=== PATIENT | female | born 1995 | race Caucasian/White ===

== ENCOUNTER → 2017-03-26 | Emergency (ER) | payer BC ==
[~2017-03-26] MED LIST: CALC250T PO; IBUP-232 PO; PREN1CAP20 PO; SENN1TAB PO
--- NOTE | 2017-03-26 13:37 | PD ---
HPI Chief Complaint Equivocal NST from office Date Seen: March 26, 2017 Time Seen: 13:24 (Jaiden Dixon MD R1) Travel History International Travel<30 Days: No Contact w/Intl Traveler<30Days: No (Jaiden Dixon MD R1) History of Present Illness HPI 21 y/o G1 at 40/2 weeks presents from office for equivocal NST. [facility] and NST was performed because patient was past 40 weeks. Was sent over here to ED. Otherwise, denies any complaints/concerns. Denies any vaginal bleeding, loss of fluids, contractions. Endorses movement. Denies any chest pain, SOB, abdominal pain, leg pain. No headache, changes in vision, edema. No problems with this . Para: 0 : 1 (Jaiden Dixon MD R1) History Past Medical History Medical History: Denies Significant Hx (Jaiden Dixon MD R1) Obstetric History Obstetric History (Jaiden Dixon MD) Past Surgical History Surgical History: No Previous Surgery (Jaiden Dixon MD) Family History Family History: Negative (Jaiden Dixon MD) Social History Alcohol Use: No Tobacco Use: No Substance Abuse: No (Jaiden Dixon MD) Allergies-Medications (Allergen,Severity, Reaction): Coded Allergies: No Known Allergies (Unverified , 03/26/17) Home Meds Active Scripts W/O Vit A W/ Fe Carbo (Prenate Mini 18-0.6-0.4-350 mg)1 Cap Cap1 Cap PO DAILY #30 BOTTLE Ref 11 Prov:Heather Mejia CNM [facility] 11/02/16 Without A W/ Fe Carbo (Prenate Mini 29-0.6-0.4-350 mg)1 Cap Cap Sample #2 Prov:Heather Mejia CNM [facility] 11/02/16 Reported Medications Calcium Citrate 250 Mg [id number] Mg PO Ref 0 11/02/16 Review of Systems General / Constitutional: Weight Gain, No: Fever, Weight Loss, Chills Eyes: No: Diploplia, Blurred Vision HENT: No: Headaches, Vertigo Cardiovascular: No: Irregular Rhythm, Chest Pain or Discomfort, Palpitations Respiratory: No: Cough, Short of Breath Gastrointestinal: No: Nausea, Vomiting, Diarrhea, Abdominal Pain Genitourinary: No: Urgency, Frequency, Dysuria, Pelvic Pain, Vaginal Bleeding Musculoskeletal: No: Limited ROM, Weakness, Cramping, Edema Skin: No Rash, No Itching Neurologic: No: Weakness, Dizziness (Jaiden Dixon MD R1) Physical Exam Narrative GENERAL: Well-nourished, well-developed patient. SKIN: Warm and dry. HEAD: Normocephalic and atraumatic. EYES: No scleral icterus. No injection or drainage. ENT: No nasal drainage noted. Mucous membranes pink. Airway patent. NECK: Supple, trachea midline. No JVD. CARDIOVASCULAR: Regular rate and rhythm without murmurs, gallops, or rubs. RESPIRATORY: Breath sounds equal bilaterally. No accessory muscle use. ABDOMEN/GI: Abdomen soft, non-tender, bowel sounds present, no rebound, no guarding Gravid to 40 weeks size GENITOURINARY: External Genitalia: intact and normal in appearance Cervix: posterior Dilatation: 1 Effacement: 50 Station: -2 Presentation: vertex Membranes: intact Uterine Contractions: q5-10minutes FHT's: Category: 1 Baseline: 150 Reactive: yes Variability: moderate Decels: none EXTREMITIES: No cyanosis or edema. BACK: Nontender without obvious deformity. No CVA tenderness. NEUROLOGICAL: Awake and alert. Motor and sensory grossly within normal limits. Five out of 5 muscle strength in all muscle groups. Normal speech. (Jaiden Dixon MD R1) Data Data Vital Signs Reviewed: Yes (Jaiden Dixon MD R1) [facility] Medical Record Reviewed: Yes Interpretation(s) 21 y/o at 40/2 weeks presents from office for equivocal NST Category 1 FHT Vitals stable Cervical exam: /-2 - Discharge home - Schedule induction on 03/29 at 8pm with Cytotec - [facility] appointment with [facility] - Return to ED if signs of labor, loss of fluids, vaginal bleeding, frequent contractions. (Jaiden Dixon MD R1) Diagnosis Diagnosis: Primary Impression: 40 weeks gestation of Disposition: DISCHARGE HOME Condition: Stable Patient Instructions: General Instructions Collaborating MD Comments monitoring is category 1. Patient set up for induction prior to discharge. (Jami Mcgowan MD) Jaiden Dixon MD R1 March 26, 2017 13:37 Jami Mcgowan MD March 26, 2017 23:02
== END | disposition home or self-care (01) ==
LOC: HOBED 12:40
DX: O26.93 Pregnancy related conditions, unspecified, third trimester (principal); Z3A.40 40 weeks gestation of pregnancy
CPT/HCPCS: 59025

== ENCOUNTER 2017-03-31 01:40 | Inpatient (IN) | payer BC ==
[~2017-03-31] VITALS: Ht 172.7 cm; Wt 79.4 kg
[2017-03-31] VITALS (58 sets, daily range): BP systolic 109–138; BP diastolic 50–96; PULSE 74–135; RESP 18–22; TEMP 98.3–101.2
[~2017-03-31 01:40] MED LIST changes: -IBUP-232 PO; -SENN1TAB PO
[2017-03-31] MEDS: LACTATED RINGER'S 1000 ML INJ 1,000 ML IV SCH ×2 (02:05→05:31)
[2017-03-31] MEDS ORDERED: LACTATED RINGER'S 1000 ML INJ 1,000 ML IV PRN (02:05)
--- NOTE | 2017-03-31 02:05 | HHI.HP ---
HPI Chief Complaint induction of labor Date Seen: March 31, 2017 Time Seen: 02:05 (Octavia Lott MD R3) Travel History International Travel<30 Days: No Contact w/Intl Traveler<30Days: No Known Affected Area: No (Octavia Lott MD R3) History of Present Illness HPI Patient is a at 41 weeks gestation with EDC of who presents for induction of labor. She was seen on March 26 and scheduled for induction on March 29 due to post dates; however she wanted to go into labor naturally so she did not come in for induction last night. She started having regular painful contractions every 1-3 minutes so she went to [facility]. She was 2cm so they discharged her home. She continued to have painful contractions so she came to [place] for evaluation. Denies vaginal bleeding, LOF, or dysuria. Endorses good movement. has been uncomplicated thus far. Para: 0 : 1 (Octavia Lott MD R3) History Past Medical History Medical History: Denies Significant Hx (Octavia Lott MD R3) Obstetric History Obstetric History (Octavia Lott MD R3) Past Surgical History Surgical History: No Previous Surgery (Octavia Lott MD R3) Family History Family History: Negative (Octavia Lott MD R3) Social History Alcohol Use: No Tobacco Use: No Substance Abuse: No (Octavia Lott MD R3) Allergies-Medications (Allergen,Severity, Reaction): Coded Allergies: No Known Allergies (Unverified , 03/29/17) Home Meds Active Scripts W/O Vit A W/ Fe Carbo (Prenate Mini 18-0.6-0.4-350 mg)1 Cap Cap1 Cap PO DAILY #30 BOTTLE Ref 11 Prov:Heather Mejia CNM [facility] 11/02/16 Without A W/ Fe Carbo (Prenate Mini 29-0.6-0.4-350 mg)1 Cap Cap Sample #2 Prov:Heather Mejia CNM [facility] 11/02/16 Reported Medications Calcium Citrate 250 Mg [id number] Mg PO Ref 0 11/02/16 Review of Systems Except as stated in HPI: all other systems reviewed are Neg (Octavia Lott MD R3) Physical Exam Narrative GENERAL: Well-nourished, well-developed patient. SKIN: Warm and dry. HEAD: Normocephalic and atraumatic. EYES: No scleral icterus. No injection or drainage. ENT: No nasal drainage noted. Mucous membranes pink. Airway patent. NECK: Supple, trachea midline. CARDIOVASCULAR: Regular rate and rhythm without murmurs, gallops, or rubs. RESPIRATORY: Breath sounds equal bilaterally. No accessory muscle use. ABDOMEN/GI: Abdomen soft, non-tender, bowel sounds present, no rebound, no guarding Gravid to 41 weeks size GENITOURINARY: External Genitalia: intact and normal in appearance Cervix: Midposition Dilatation: 2cm Effacement: 100% Station: -1 Presentation: [-] Membranes: intact Uterine Contractions: every 1-3 minutes FHT's: Category: 1 Baseline: 145 Reactive: yes Variability: moderate Decels: EXTREMITIES: No cyanosis or edema. BACK: Nontender without obvious deformity. No CVA tenderness NEUROLOGICAL: Awake and alert. Motor and sensory grossly within normal limits. Normal speech. (Octavia Lott MD R3) Data Data Vital Signs Reviewed: Yes (Octavia Lott MD R3) Assessment/Plan Assessment and Plan Patient is a at 41 weeks gestation with EDC of who presents for induction of labor; however she is estee regularly every 1-3 minutes so she wants to hold off on starting Pitocin if possible. Cervix 2cm/100%/-1. Intact membranes. 1) IUP: Category I tracing. -Continue routine care 2) GBS negative 3) Dispo: Anticipate normal vaginal delivery. D/w Dr. Angelo (Octavia Lott MD R3) Attending Attestation The exam, history, and the medical decision-making described in the above note were completed with the assistance of the resident provider. I reviewed and agree with the findings presented. I attest that I had a [id number] encounter with the patient on the same day, and personally performed and documented my assessment and findings in the medical record. (Dayanara Angelo MD) Octavia Lott MD R3 March 31, 2017 02:05 Dayanara Angelo MD March 31, 2017 08:26
[2017-03-31] MEDS ORDERED: SODIUM CHLORID 0.9% 500 ML INJ 500 ML IV PRN (02:15)
[2017-03-31] MEDS ORDERED: MISOPROSTOL 25 MCG SUPP VAGINAL ONE (02:15)
[2017-03-31] MEDS ORDERED: ONDANSETRON HCL 4 MG/2 ML VIAL IV PRN (02:15)
[2017-03-31] MEDS ORDERED: CITRIC ACID-SODIUM CITRATE LIQ 30 ML UDC PO SCH (02:15)
[2017-03-31] MEDS ORDERED: OXYTOCIN 30 UNITS-500ML PREMIX 500 ML IV ONE (02:15)
[2017-03-31] MEDS ORDERED: LIDOCAINE HCL 1% 50 ML VIAL INFIL PRN (02:15)
[2017-03-31] MEDS ORDERED: LIDOCAINE HCL 1% 50 ML VIAL I-DERMAL PRN (02:15)
[2017-03-31] MEDS ORDERED: MINERAL OIL 10 ML VIAL TOPICAL PRN (02:15)
[2017-03-31] MEDS ORDERED: SODIUM CHLOR 0.9% 1000 ML INJ 1,000 ML IV PRN (02:25)
[2017-03-31 02:26] LABS: AUTOMATED NEUTROPHIL # 10.2 TH/MM3 (1.8-7.7); BASOPHIL # 0.1 TH/MM3 (0-0.2); BASOPHIL % 0.4 % (0.0-2.0); HEMATOCRIT 33.3 % (35.0-46.0); HEMO FLAGS DIFF FINAL; LYMPH % 16.5 % (9.0-44.0); LYMPHOCYTE # 2.2 TH/MM3 (1.0-4.8); MEAN CELL VOLUME 84.5 FL (80.0-100.0); MEAN CORPUSCULAR HEMOGLOBIN 26.8 PG (27.0-34.0); MEAN CORPUSCULAR HGB CONC 31.7 % (32.0-36.0); MONO % 6.6 % (0.0-8.0); NEUT % 76.5 % (16.0-70.0); PLATELET COUNT 287 TH/MM3 (150-450); RED BLOOD COUNT 3.94 MIL/MM3 (4.00-5.30); RED CELL DISTRIBUTION WIDTH 13.4 % (11.6-17.2); WHITE BLOOD COUNT 13.4 TH/MM3 (4.0-11.0)
[2017-03-31 02:37] LABS: BLOOD, URINE NEG (NEG); COMMENT (UR) CULT NOT INDICATED; CULTURE IF INDICATED CULT NOT INDICATED; GLUCOSE,URINE NEG (NEG); KETONE, URINE NEG (NEG); MUCUS URINE FEW /lpf (OCC); NITRITE,URINE NEG (NEG); RENAL EPITHELIAL CELLS <1 /hpf; SQUAMOUS EPITHELIAL CELL URINE 2 /hpf (0-5); URINE COLOR YELLOW (YELLW/STRAW)
[2017-03-31] MEDS ORDERED: fentaNYL 2MCG-BUPIV 0.125% INJ 100 ML ONE (04:33)
[2017-03-31] MEDS ORDERED: DO NOT ADMINISTER ANTICOAGULANTS PRN (05:00)
[2017-03-31] MEDS ORDERED: fentaNYL 2MCG-BUPIV 0.125% 100 ML EPIDURAL SCH (05:00)
[2017-03-31] MEDS ORDERED: ePHEDrine/NS 25 MG/5 ML SYR IV PRN (05:00)
[2017-03-31] MEDS ORDERED: NO SYSTEM NARCOTICS PRN (05:00)
[2017-03-31] MEDS: AMPICILLIN/SULBAC 3 GM/NS 100 ML IV SCH ×4 (09:24→15:53)
[2017-03-31] MEDS ORDERED: AMPICILLIN-SULBACTAM INJ 3 GM VIAL IM SCH (10:00)
[2017-03-31] MEDS ORDERED: AMPICILLIN/SULBAC 3 GM/NS 100 ML IV SCH ×2 (10:00)
--- NOTE | 2017-03-31 10:06 | PD.OB.DELI ---
Delivery Date: March 31, 2017 Anesthesia: None Episiotomy: None Vaginal Delivery: Normal Presentation: Occiput anterior Nuchal Cord: None : Female One Minute : 9 Five Minute : 9 Placenta: Spontaneous delivery, Intact, 3 vessel cord Repair: Chromic running (Jaiden Dixon MD R1) Delivery Date: March 31, 2017 Anesthesia: Epidural Episiotomy: None Vaginal Delivery: Normal Presentation: Occiput anterior Nuchal Cord: None Delayed cord clamping (45 sec): No Infant: Female One Minute : 9 Five Minute : 9 Weight: [id number] Placenta: Spontaneous delivery, Intact, 3 vessel cord Additional Information bilateral superficial periurthral lacerations repaired with interrupted sutures of 3-0 vicryl. EBL 300 ml. (Dayanara Angelo MD) Jaiden Dixon MD R1 March 31, 2017 10:05 Dayanara Angelo MD March 31, 2017 10:36
[2017-03-31] MEDS ORDERED: ONDANSETRON ODT 4 MG TAB PO PRN (11:00)
[2017-03-31] MEDS ORDERED: oxyCODONE/ACETAMINOPHEN 5 MG/325 MG TAB PO PRN ×2 (11:00)
[2017-03-31] MEDS ORDERED: SODIUM CHLORIDE 0.9% FLUSH 10 ML FLUSH IV FLUSH PRN (11:00)
[2017-03-31] MEDS ORDERED: ZOLPIDEM TARTRATE 5 MG TAB PO PRN (11:00)
[2017-03-31] MEDS ORDERED: WITCH HAZEL 50%/GLYCERIN 12.5% 40 PAD JAR TOPICAL PRN (11:00)
[2017-03-31] MEDS ORDERED: BENZOCAINE 20% TOPICAL SPRAY 60 ML CAN TOPICAL PRN (11:00)
[2017-03-31] MEDS ORDERED: ALUMINUM/MAGNESIUM/SIMETH 30 ML CUP PO PRN (11:00)
[2017-03-31] MEDS ORDERED: ACETAMINOPHEN 325 MG TAB PO PRN (11:00)
[2017-03-31] MEDS: IBUPROFEN 600 MG TAB PO PRN (11:32)
[2017-03-31 13:13] LABS: BASOPHIL % 0.2 % (0.0-2.0); HEMATOCRIT 31.8 % (35.0-46.0); HEMO FLAGS DIFF FINAL; LYMPH % 9.4 % (9.0-44.0); LYMPHOCYTE # 1.6 TH/MM3 (1.0-4.8); MEAN CELL VOLUME 83.5 FL (80.0-100.0); MEAN CORPUSCULAR HEMOGLOBIN 27.1 PG (27.0-34.0); MEAN CORPUSCULAR HGB CONC 32.5 % (32.0-36.0); MONO % 7.6 % (0.0-8.0); NEUT % 82.8 % (16.0-70.0); PLATELET COUNT 298 TH/MM3 (150-450); RED BLOOD COUNT 3.81 MIL/MM3 (4.00-5.30); RED CELL DISTRIBUTION WIDTH 13.2 % (11.6-17.2); WHITE BLOOD COUNT 16.9 TH/MM3 (4.0-11.0)
[2017-03-31] MEDS ORDERED: DIPHTH/TETANUS/ACEL PERTUSSIS (BOOSTER) 0.5 ML VIAL/PFS IM ONE (16:00)
[2017-03-31] MEDS ORDERED: MEASLES, MUMPS, RUBELLA VACCINE 0.5 ML VIAL SQ ONE (16:00)
[2017-03-31] MEDS ORDERED: SODIUM CHLORIDE 0.9% FLUSH 10 ML FLUSH IV FLUSH SCH (21:00)
[2017-04-01] MEDS: AMPICILLIN/SULBAC 3 GM/NS 100 ML IV SCH ×4 (00:33→06:26)
[2017-04-01] MEDS: DOCUSATE SODIUM 50 MG/SENNA 8.6 MG TAB PO PRN ×2 (06:26→22:06)
[2017-04-01] MEDS: IBUPROFEN 600 MG TAB PO PRN ×2 (07:26→22:06)
--- NOTE | 2017-04-01 08:18 | HHI.OB ---
Subjective Post Day: 1 Remarks day #1. AFVSS overnight. Afebrile since 0900 yesterday. Pain well- controlled. Decreased lochia. Denies dysuria. No breast tenderness. She is feeding the baby via breast. Appetite good. No nausea or vomiting. Endorses flatus. No bowel movement. Ambulating well. Denies calf pain, shortness of breath, or cough. Otherwise, she is doing well this morning and has no other complaints. Objective Vitals/I&O Vital Signs Date Time Temp Pulse Resp B/P Pulse Ox O2 Delivery O2 Flow Rate FiO2 03/31/17 11:28 18 03/31/17 11:21 98.5 03/31/17 11:15 99 123/95 03/31/17 11:00 87 116/69 03/31/17 10:58 98.5 03/31/17 10:56 18 03/31/17 10:45 94 118/78 03/31/17 10:45 18 03/31/17 10:30 85 131/65 03/31/17 10:28 18 03/31/17 10:16 94 124/64 03/31/17 10:15 18 03/31/17 10:00 101 117/67 03/31/17 09:53 20 03/31/17 09:53 99.6 03/31/17 09:45 20 03/31/17 09:45 100 130/52 03/31/17 09:30 105 136/73 03/31/17 09:15 102 114/50 03/31/17 09:04 101.2 22 03/31/17 09:00 92 134/59 03/31/17 08:46 98 130/50 03/31/17 08:30 106 132/68 03/31/17 08:22 115/92 Objective Remarks GENERAL: Well-nourished, well-developed patient. CARDIOVASCULAR: Regular rate and rhythm without murmurs, gallops, or rubs. RESPIRATORY: Breath sounds equal bilaterally. No accessory muscle use. ABDOMEN/GI: Abdomen soft, non-tender. Fundus: Firm, non-tender at umbilicus. GENITOURINARY: Light to moderate bleeding. EXTREMITIES: No cyanosis or edema, non-tender, without signs of DVT. Medications and IVs Current Medications Medications (Trade) Dose Ordered Sig/Kelsey Route Start Time Stop Time Status Last Admin Lactated Ringer's 1,000 ml @ 125 mls/hr Q8H IV 03/31/17 02:05 03/31/17 05:31 Lactated Ringer's 1,000 ml @ 3,000 mls/hr Q20M PRN IV 03/31/17 02:05 03/31/17 05:32 (NS 1000 ml Inj) 1,000 ml @ 100 mls/hr Q10H PRN IV 03/31/17 02:25 (Zofran Inj) 4 mg Q6H PRN IV 03/31/17 02:15 (fentaNYL INJ) 50 mcg Q1H PRN IV PUSH 03/31/17 02:15 03/31/17 05:30 (fentaNYL INJ) 100 mcg Q1H PRN IV PUSH 03/31/17 02:15 Mineral Oil 10 ml 10 ml UNSCH PRN TOPICAL 03/31/17 02:15 Fentanyl/ Bupivacaine HCl 100 ml @ 0 mls/hr TITRATE EPIDURAL 03/31/17 05:00 (Unasyn Inj/NS Inj) 100 ml @ 200 mls/hr Q6H IV 03/31/17 09:30 04/01/17 06:26 (NS Flush) 2 ml BID IV FLUSH 03/31/17 21:00 (NS Flush) 2 ml UNSCH PRN IV FLUSH 03/31/17 11:00 (Tylenol) 650 mg Q4H PRN PO 03/31/17 11:00 (Motrin) 600 mg Q6H PRN PO 03/31/17 11:00 04/01/17 07:26 (Percocet 5-325 Mg) 1 tab Q4H PRN PO 03/31/17 11:00 (Percocet 5-325 Mg) 2 tab Q4H PRN PO 03/31/17 11:00 (Americaine 20% Top Spr) 1 spray Q4H PRN TOPICAL 03/31/17 11:00 03/31/17 12:22 (Tucks Pads) 1 applic QID PRN TOPICAL 03/31/17 11:00 03/31/17 12:22 (Alee-Colace) 2 tab Q12H PRN PO 03/31/17 11:00 04/01/17 06:26 (Ambien) 5 mg HS PRN PO 03/31/17 11:00 (Mag-Al Plus Susp Liq) 15 ml Q8H PRN PO 03/31/17 11:00 (Zofran Odt) 4 mg Q6H PRN PO 03/31/17 11:00 Assessment/Plan Assessment and Plan 21y/o who is PPD#1 s/p . -Continue routine care. -Percocet and Motrin PRN pain. -Encouraged OOB. Advised pelvic rest for 6 wks. -Will need a f/u appt. within 6 wks. -D/c in 1-2 more days. Chorioamnionitis - Afebrile since 0900 yesterday - D/c Unasyn at 24 hours if remains afebrile - Placenta path pending dw Dr. Barrett Dixon,Jaiden Duenas MD R1 April 01, 2017 08:18
[2017-04-01 10:44] LABS: RAPID PLASMA REAGIN SCREEN NON-REACTIVE (NON-REACTVE)
[2017-04-01 19:25] VITALS: BP 130/75; PULSE 86; RESP 18; TEMP 98
[2017-04-02 08:00] VITALS: BP_SYST 140; BP_DIAS 85; BP_DIAS 88; PULSE 70; RESP 18; TEMP 98.3
--- NOTE | 2017-04-02 08:19 | HHI.OB ---
Subjective Post Day: 2 Remarks day #2. AFVSS overnight. Pain minimal. Decreased lochia. Denies dysuria. No breast tenderness. She is feeding the baby via breast. Appetite good. No nausea or vomiting. Endorses flatus. No bowel movement. Ambulating well. Denies calf pain, shortness of breath, or cough. Otherwise, she is doing well this morning and has no other complaints. Objective Vitals/I&O Vital Signs Date Time Temp Pulse Resp B/P Pulse Ox O2 Delivery O2 Flow Rate FiO2 04/01/17 19:25 98.0 04/01/17 19:25 86 18 130/75 Objective Remarks GENERAL: Well-nourished, well-developed patient. CARDIOVASCULAR: Regular rate and rhythm without murmurs, gallops, or rubs. RESPIRATORY: Breath sounds equal bilaterally. No accessory muscle use. ABDOMEN/GI: Abdomen soft, non-tender. Fundus: Firm, non-tender at umbilicus. GENITOURINARY: Light bleeding. EXTREMITIES: No cyanosis or edema, non-tender, without signs of DVT. Medications and IVs Current Medications Medications (Trade) Dose Ordered Sig/Kelsey Route Start Time Stop Time Status Last Admin Lactated Ringer's 1,000 ml @ 125 mls/hr Q8H IV 03/31/17 02:05 03/31/17 05:31 Lactated Ringer's 1,000 ml @ 3,000 mls/hr Q20M PRN IV 03/31/17 02:05 03/31/17 05:32 (NS 1000 ml Inj) 1,000 ml @ 100 mls/hr Q10H PRN IV 03/31/17 02:25 (Zofran Inj) 4 mg Q6H PRN IV 03/31/17 02:15 (fentaNYL INJ) 50 mcg Q1H PRN IV PUSH 03/31/17 02:15 03/31/17 05:30 (fentaNYL INJ) 100 mcg Q1H PRN IV PUSH 03/31/17 02:15 Mineral Oil 10 ml 10 ml UNSCH PRN TOPICAL 03/31/17 02:15 (fentaNYL 2MCG-BUPIV 0.125% INJ) 100 ml @ 0 mls/hr TITRATE EPIDURAL 03/31/17 05:00 (NS Flush) 2 ml BID IV FLUSH 03/31/17 21:00 (NS Flush) 2 ml UNSCH PRN IV FLUSH 03/31/17 11:00 (Tylenol) 650 mg Q4H PRN PO 03/31/17 11:00 (Motrin) 600 mg Q6H PRN PO 03/31/17 11:00 04/01/17 22:06 (Percocet 5-325 Mg) 1 tab Q4H PRN PO 03/31/17 11:00 (Percocet 5-325 Mg) 2 tab Q4H PRN PO 03/31/17 11:00 (Americaine 20% Top Spr) 1 spray Q4H PRN TOPICAL 03/31/17 11:00 03/31/17 12:22 (Tucks Pads) 1 applic QID PRN TOPICAL 03/31/17 11:00 03/31/17 12:22 (Alee-Colace) 2 tab Q12H PRN PO 03/31/17 11:00 04/01/17 22:06 (Ambien) 5 mg HS PRN PO 03/31/17 11:00 (Mag-Al Plus Susp Liq) 15 ml Q8H PRN PO 03/31/17 11:00 (Zofran Odt) 4 mg Q6H PRN PO 03/31/17 11:00 Assessment/Plan Assessment and Plan 21y/o who is PPD#2 s/p . -Continue routine care. -Percocet and Motrin PRN pain. -Encouraged OOB. Advised pelvic rest for 6 wks. -Will need a f/u appt. within 6 wks. -D/c today. Chorioamnionitis - Afebrile for 2 days - S/p Unasyn - Placenta path wnl dw Dr. Barrett Dixon,Jaiden Duenas MD R1 April 02, 2017 08:19
[2017-04-02] MEDS ORDERED: SENN1TAB PO (08:55)
[2017-04-02] MEDS ORDERED: IBUP-232 PO (08:55)
--- NOTE | 2017-04-02 08:56 | HHI.DCPOC ---
Discharge Care Plan Diagnosis: (1) care and examination Report Symptoms to Your Doctor -Temperate above 100.5 degrees -Redness, of incision or excessive or foul smelling drainage -Unusual pain or calf pain -Increased vaginal bleeding -Painful or difficulty urinating -Feelings of extreme sadness or anxiety after 2 weeks Goals to Promote Your Health * To prevent worsening of your condition and complications * To maintain your health at the optimal level Directions to Meet Your Goals Take your medications as prescribed Follow your dietary instruction Follow activity as directed Ensure plenty of rest for recovery Drink fluids for hydration Keep your appointments as scheduled Take your immunizations and boosters as scheduled If your symptoms worsen call your PCP, if no PCP go to Urgent Care Center or Emergency Room Smoking is Dangerous to Your Health. Avoid second hand smoke Call the 24-hour crisis hotline for domestic abuse at Jaiden Dixon MD R1 April 02, 2017 08:56
[2017-04-02] MEDS: IBUPROFEN 600 MG TAB PO PRN (11:41)
[2017-04-02 14:10] VITALS: BP 120/75; PULSE 69; RESP 18; TEMP 97.5
== END 2017-04-02 18:36 | disposition home or self-care (01) | DRG 775 ==
LOC: H2EA 01:40 → H1EA 12:29
PROVIDERS: ADMIT Obstetrics & Gynecology; ATTEND Obstetrics & Gynecology
PROC: 10E0XZZ Delivery of Products of Conception, External Approach (ICD-10-PCS; principal; 2017-03-31)
PROC: 0UQMXZZ Repair Vulva, External Approach (ICD-10-PCS; 2017-03-31)
PROC: 10E0XZZ Delivery of Products of Conception, External Approach (ICD-10-PCS; 2017-03-31)
PROC: 3E0R3CZ (ICD-10-PCS; 2017-03-31)
PROC: 00HU33Z Insertion of Infusion Device into Spinal Canal, Percutaneous Approach (ICD-10-PCS; 2017-03-31)
DX: O41.1230 Chorioamnionitis, third trimester, not applicable or unspecified (principal); O48.0 Post-term pregnancy; Z37.0 Single live birth; Z3A.41 41 weeks gestation of pregnancy; O71.82 Other specified trauma to perineum and vulva
CPT/HCPCS: 59025; 81001; 85025; 86592; 86850; 86900; 86901; 86920; 88307; J0295; J2590; J3010; J7120